=== PATIENT | male | born 1995 | race Caucasian/White ===

== ENCOUNTER 2023-05-10 03:38 | Emergency (ER) | payer SELFPAY ==
[~2023-05-10] VITALS: Ht 177.8 cm; Wt 93.0 kg
[2023-05-10 03:50] VITALS: BP 140/90; PULSE 90; RESP 17; TEMP 98.3; O2SAT 98
--- NOTE | 2023-05-10 03:50 | NUR ---
to bed ambulatory
--- NOTE | 2023-05-10 04:09 | NUR ---
27 YO M BIB SELF C/O FOREIGN BODY IN R EAR CANAL. STATES WOKE HIM UP FROM SLEEP. FOREIGN BODY OBSERVED IN EAR CANAL. PT STATES PAIN OFF AND ON. PT STATES "FEELS LIKE WIND BLOWING IN EARS". FB/"BUG" IS VISIBLE IN EAR CANAL. NKDA NO MED HX
--- NOTE | 2023-05-10 04:59 | NUR ---
DR HEWITT AT BEDSIDE.
[2023-05-10 05:00] VITALS: O2SAT 98
--- NOTE | 2023-05-10 05:02 | NUR ---
DR HEWITT AT BEDSIDE
[2023-05-10] MEDS ORDERED: IBUP-2213 PO (05:12)
--- NOTE | 2023-05-10 05:15 | NUR ---
Patient discharged with v/s stable. Written and verbal after care instructions given and explained. Patient verbalized understanding. Ambulatory with steady gait. All questions addressed prior to discharge. Advised to follow up with PMD.
== END 2023-05-10 05:15 | disposition home or self-care (01) ==
LOC: MED 03:38
DX: T16.1XXA Foreign body in right ear, initial encounter (principal); X58.XXXA Exposure to other specified factors, initial encounter; Y93.89 Activity, other specified; Y92.89 Other specified places as the place of occurrence of the external cause; Y99.8 Other external cause status
CPT/HCPCS: 69200; 99282; 99284